=== PATIENT | male | born 1975 | race Two or more races ===

== ENCOUNTER 2017-06-05 13:12 | Inpatient (IN) | payer BC, OTHER ==
[~2017-06-05] VITALS: Ht 175.3 cm; Wt 95.5 kg
[~2017-06-05 13:12] MED LIST: INSU100V9 SQ; MAGCITRATE PO; NO HOME MEDS
[2017-06-05] MEDS ORDERED: normal saline 1000ML IV soln IV ONE (14:05)
[2017-06-05 14:27] LABS: BASOPHILS % (AUTO) 0.1 % (0-1); EOSINOPHILS # (AUTO) 0.1 X10'3 (0-0.9); EOSINOPHILS % (AUTO) 0.8 % (0-6); HEMATOCRIT 37.2 % (42.0-52.0); HEMOGLOBIN 12.9 g/dl (14.0-17.9); LYMPHOCYTES # (AUTO) 1.3 X10'3 (1.1-4.8); LYMPHOCYTES % (AUTO) 13.1 % (21-51); MEAN CORPUSCULAR HEMOGLOBIN 31.3 PG (27.0-31.0); MEAN CORPUSCULAR HGB CONC 34.6 % (33.0-36.5); MEAN CORPUSCULAR VOLUME 90.3 FL (78-98); MEAN PLATELET VOLUME 7.1 FL (7.4-10.4); MONOCYTES # (AUTO) 0.7 X10'3 (0-0.9); MONOCYTES % (AUTO) 7.1 % (2-12); NEUTROPHILS # (AUTO) 7.6 X10'3 (1.8-7.7); NEUTROPHILS % (AUTO) 78.9 % (42-75); PLATELET COUNT 330 X10'3 (140-440); RED BLOOD COUNT 4.12 X10'6 (4.70-6.10); RED CELL DISTRIBUTION WIDTH 12.3 % (11.5-14.5); WHITE BLOOD COUNT 9.7 X10'3 (4.5-11.0)
[2017-06-05 14:41] LABS: ALANINE AMINOTRANSFERASE 41 U/L (12-78); ALBUMIN 2.8 G/DL (3.4-5.0); ALBUMIN/GLOBULIN RATIO 0.6 (1.1-1.5); ALKALINE PHOSPHATASE 152 IU/L (46-116); ANION GAP 11 (8-16); ASPARTATE AMINO TRANSFERASE 14 U/L (10-37); BILIRUBIN,TOTAL 0.6 MG/DL (0.1-1.0); BLOOD UREA NITROGEN 15 MG/DL (7-18); BUN/CREATININE RATIO 14.2 (5.4-32.0); CALCIUM 9.3 MG/DL (8.5-10.1); CHLORIDE 96 MMOL/L (99-107); CREATININE 1.06 MG/DL (0.60-1.10); GLUCOSE 298 MG/DL (70-104); POTASSIUM 4.6 MMOL/L (3.5-5.1); SODIUM 134 MMOL/L (135-145); TOTAL PROTEIN 7.7 G/DL (6.4-8.2); eGFR 76 ML/MIN
[2017-06-05] MEDS ORDERED: iohexol 300mg/ml 100ml inj. ONE (15:00)
[2017-06-05] MEDS ORDERED: albuterol 2.5 MG/3 ML nebule NEB ONE (15:35)
[2017-06-05] MEDS ORDERED: LORazepam 2 mg/ml vial IV ONE (15:35)
[2017-06-05] MEDS ORDERED: methylPREDNISolone sod succ 125mg/2ml vial IV ONE (15:35)
[2017-06-05] MEDS ORDERED: oseltamivir phos 75mg capsule PO ONE (16:05)
[2017-06-05] MEDS: MESSAGE TO NURSING PO NR (16:12)
[2017-06-05] MEDS ORDERED: normal saline 1000ML IV soln IVB ONE (16:45)
[2017-06-05] MEDS ORDERED: CefTRIAXone 2gm/NS 100ml IVPB 100 ML IV ONE ×2 (16:45→18:05)
[2017-06-05] MEDS ORDERED: CefTRIAXone/dextrose 2GM bag 50 ML IV ONE ×2 (16:46→18:18)
[2017-06-05] MEDS ORDERED: azithromycin/NS 500mg/250ml 250 ML IV ONE (16:50)
[2017-06-05] MEDS ORDERED: ATOR10TA87 PO (17:36)
[2017-06-05] MEDS ORDERED: GABA-532 PO (17:36)
[2017-06-05] MEDS ORDERED: METF500T PO (17:37)
[2017-06-05] MEDS ORDERED: NOVRI SQ (17:38)
[2017-06-05] MEDS ORDERED: INSU100V9 SQ ×2 (17:39)
[2017-06-05] MEDS ORDERED: mag hydrox/Alum hydrox/simeth 30ml oral suspension PO PRN (18:05)
[2017-06-05] MEDS ORDERED: MESSAGE TO PHARMACY PO ONE (18:05)
[2017-06-05] MEDS ORDERED: acetaminophen 325mg tablet PO PRN ×2 (18:05)
[2017-06-05] MEDS ORDERED: glucagon, human recombinant 1mg kit SUBCUT PRN (18:05)
[2017-06-05] MEDS ORDERED: dextrose 50%-water 50ml dispensing syringe IV PRN ×2 (18:05)
[2017-06-05] MEDS ORDERED: magnesium hydroxide 30ml (MOM) UD suspension PO PRN (18:05)
[2017-06-05] MEDS ORDERED: dextrose ORAL solution 15 GM/59 ML bottle PO PRN ×2 (18:05)
[2017-06-05 19:02] LABS: HEMOGLOBIN A1C 11.8 % (4.5-6.2)
[2017-06-05] MEDS: ipratropium/albuterol 3ml nebule NEB PRN (19:27)
[2017-06-05] MEDS: ondansetron/PF 4mg/2ml inj IV PRN (19:29)
[2017-06-05] MEDS: gabapentin 100mg capsule PO SCH (19:29)
[2017-06-05] MEDS: normal saline 1000ml 1,000 ML IV SCH (19:30)
[2017-06-05] MEDS: Insulin Detemir pen SQ SCH (21:59)
[2017-06-05] MEDS: insulin Lispro (HumaLOG) vial - multi-dose SQ SCH (22:09)
[2017-06-06] VITALS: BP 143/77
[2017-06-06] MEDS: ipratropium/albuterol 3ml nebule NEB PRN ×3 (00:20→19:47)
[2017-06-06 00:50] VITALS: BP 127/64
[2017-06-06 03:47] LABS: BASOPHILS % (AUTO) 0 % (0-1); EOSINOPHILS % (AUTO) 0 % (0-6); HEMOGLOBIN 11.8 g/dl (14.0-17.9); LYMPHOCYTES # (AUTO) 0.5 X10'3 (1.1-4.8); MEAN CORPUSCULAR HEMOGLOBIN 31.6 PG (27.0-31.0); MEAN CORPUSCULAR HGB CONC 34.8 % (33.0-36.5); MEAN CORPUSCULAR VOLUME 90.7 FL (78-98); MEAN PLATELET VOLUME 7.3 FL (7.4-10.4); MONOCYTES # (AUTO) 0.3 X10'3 (0-0.9); MONOCYTES % (AUTO) 2.6 % (2-12); NEUTROPHILS # (AUTO) 10.6 X10'3 (1.8-7.7); NEUTROPHILS % (AUTO) 93.4 % (42-75); PLATELET COUNT 288 X10'3 (140-440); RED BLOOD COUNT 3.74 X10'6 (4.70-6.10); RED CELL DISTRIBUTION WIDTH 12.3 % (11.5-14.5); WHITE BLOOD COUNT 11.3 X10'3 (4.5-11.0)
[2017-06-06 04:00] LABS: ALANINE AMINOTRANSFERASE 23 U/L (12-78); ALBUMIN 2.5 G/DL (3.4-5.0); ALBUMIN/GLOBULIN RATIO 0.6 (1.1-1.5); ALKALINE PHOSPHATASE 145 IU/L (46-116); ANION GAP 19 (8-16); ASPARTATE AMINO TRANSFERASE 6 U/L (10-37); BILIRUBIN,TOTAL 0.4 MG/DL (0.1-1.0); BLOOD UREA NITROGEN 17 MG/DL (7-18); BUN/CREATININE RATIO 17.2 (5.4-32.0); CHLORIDE 100 MMOL/L (99-107); CREATININE 0.99 MG/DL (0.60-1.10); GLUCOSE 439 MG/DL (70-104); POTASSIUM 4.7 MMOL/L (3.5-5.1); SODIUM 136 MMOL/L (135-145); TOTAL CARBON DIOXIDE 16.9 MMOL/L (24-32); eGFR 83 ML/MIN
[2017-06-06] MEDS: normal saline 1000ml 1,000 ML IV SCH ×3 (05:11→19:27)
[2017-06-06 08:00] VITALS: BP 151/90
[2017-06-06] MEDS ORDERED: enoxaparin 40mg/0.4ml syringe SUBCUT SCH (08:00)
[2017-06-06] MEDS ORDERED: CefTRIAXone 2gm/NS 100ml IVPB 100 ML IV SCH (08:00)
[2017-06-06] MEDS: Insulin Detemir pen SQ SCH ×2 (08:07→21:46)
[2017-06-06] MEDS: insulin Lispro (HumaLOG) vial - multi-dose SQ SCH ×2 (08:12→19:31)
[2017-06-06] MEDS: gabapentin 100mg capsule PO SCH ×2 (08:15→19:23)
[2017-06-06] MEDS: MESSAGE TO NURSING PO NR (10:00)
[2017-06-06 11:00] VITALS: BP 141/80
[2017-06-06] MEDS: azithromycin/NS 500mg/250ml 250 ML IV SCH (11:36)
[2017-06-06] MEDS: guaiFENesin/DM oral syrup 5 ML CUP PO PRN (19:23)
[2017-06-06 20:00] VITALS: BP 141/80
[2017-06-06] MEDS ORDERED: gabapentin 300mg capsule PO SCH (20:00)
[2017-06-06] MEDS: atorvastatin 10mg tablet PO SCH (21:39)
[2017-06-07] VITALS: BP 127/70
[2017-06-07] MEDS: guaiFENesin/DM oral syrup 5 ML CUP PO PRN ×3 (01:36→20:04)
[2017-06-07 02:43] VITALS: BP 112/68
[2017-06-07] MEDS: normal saline 1000ml 1,000 ML IV SCH ×2 (05:33→20:04)
[2017-06-07 06:04] LABS: BASOPHILS % (AUTO) 0.2 % (0-1); EOSINOPHILS % (AUTO) 0.3 % (0-6); HEMATOCRIT 31.8 % (42.0-52.0); HEMOGLOBIN 10.9 g/dl (14.0-17.9); LYMPHOCYTES # (AUTO) 1.4 X10'3 (1.1-4.8); LYMPHOCYTES % (AUTO) 13.2 % (21-51); MEAN CORPUSCULAR HEMOGLOBIN 31.2 PG (27.0-31.0); MEAN CORPUSCULAR HGB CONC 34.2 % (33.0-36.5); MEAN CORPUSCULAR VOLUME 91.2 FL (78-98); MEAN PLATELET VOLUME 7.2 FL (7.4-10.4); MONOCYTES # (AUTO) 0.8 X10'3 (0-0.9); MONOCYTES % (AUTO) 7.6 % (2-12); NEUTROPHILS # (AUTO) 8.6 X10'3 (1.8-7.7); NEUTROPHILS % (AUTO) 78.7 % (42-75); PLATELET COUNT 276 X10'3 (140-440); RED BLOOD COUNT 3.49 X10'6 (4.70-6.10); RED CELL DISTRIBUTION WIDTH 12.5 % (11.5-14.5); WHITE BLOOD COUNT 10.9 X10'3 (4.5-11.0)
[2017-06-07 06:17] LABS: ALBUMIN 2.3 G/DL (3.4-5.0); ANION GAP 8 (8-16); BLOOD UREA NITROGEN 11 MG/DL (7-18); BUN/CREATININE RATIO 14.9 (5.4-32.0); CALCIUM 8.4 MG/DL (8.5-10.1); CHLORIDE 105 MMOL/L (99-107); CREATININE 0.74 MG/DL (0.60-1.10); GLUCOSE 80 MG/DL (70-104); POTASSIUM 3.3 MMOL/L (3.5-5.1); SODIUM 140 MMOL/L (135-145); TOTAL CARBON DIOXIDE 26.8 MMOL/L (24-32); eGFR > 90 ML/MIN
[2017-06-07] MEDS ORDERED: potassium Cl 40MEQ/NS 500ml 500 ML IV PRN ×2 (06:50)
[2017-06-07] MEDS ORDERED: potassium Cl 20 mEq SR tablet PO PRN (06:50)
[2017-06-07 07:00] VITALS: BP 150/81
[2017-06-07] MEDS: CefTRIAXone 2gm/D5W 50ml ADVTG 50 ML IV SCH (07:25)
[2017-06-07] MEDS: azithromycin/NS 500mg/250ml 250 ML IV SCH (08:51)
[2017-06-07] MEDS: LACTOBACILLUS RHAMNOSUS GG 15 billion unit sprinkle caps PO SCH (08:51)
[2017-06-07] MEDS: gabapentin 100mg capsule PO SCH ×2 (08:51→20:04)
[2017-06-07] MEDS: Insulin Detemir pen SQ SCH ×2 (08:54→21:07)
[2017-06-07] MEDS: insulin Lispro (HumaLOG) vial - multi-dose SQ SCH ×2 (09:29→13:20)
[2017-06-07] MEDS: MESSAGE TO NURSING PO NR (10:00)
[2017-06-07 11:00] VITALS: BP 130/80
[2017-06-07] MEDS: ondansetron/PF 4mg/2ml inj IV PRN (12:06)
[2017-06-07 18:00] VITALS: BP 132/75
[2017-06-07] MEDS: atorvastatin 10mg tablet PO SCH (21:02)
[2017-06-07] MEDS: potassium Cl 20 mEq SR tablet PO PRN (21:03)
[2017-06-07 23:56] VITALS: BP 122/76
[2017-06-08] MEDS: normal saline 1000ml 1,000 ML IV SCH (03:37)
[2017-06-08] MEDS: potassium Cl 20 mEq SR tablet PO PRN (03:37)
[2017-06-08] MEDS: guaiFENesin/DM oral syrup 5 ML CUP PO PRN (03:37)
[2017-06-08 05:14] LABS: BASOPHILS % (AUTO) 0.1 % (0-1); EOSINOPHILS # (AUTO) 0.2 X10'3 (0-0.9); EOSINOPHILS % (AUTO) 2.2 % (0-6); HEMATOCRIT 33.2 % (42.0-52.0); HEMOGLOBIN 11.7 g/dl (14.0-17.9); LYMPHOCYTES # (AUTO) 1.3 X10'3 (1.1-4.8); LYMPHOCYTES % (AUTO) 16.6 % (21-51); MEAN CORPUSCULAR HGB CONC 35.2 % (33.0-36.5); MEAN PLATELET VOLUME 6.8 FL (7.4-10.4); MONOCYTES # (AUTO) 0.8 X10'3 (0-0.9); NEUTROPHILS # (AUTO) 5.5 X10'3 (1.8-7.7); NEUTROPHILS % (AUTO) 71.1 % (42-75); PLATELET COUNT 296 X10'3 (140-440); RED BLOOD COUNT 3.65 X10'6 (4.70-6.10); RED CELL DISTRIBUTION WIDTH 12.4 % (11.5-14.5); WHITE BLOOD COUNT 7.8 X10'3 (4.5-11.0)
[2017-06-08 06:02] LABS: ALBUMIN 2.2 G/DL (3.4-5.0); ANION GAP 9 (8-16); BLOOD UREA NITROGEN 8 MG/DL (7-18); BUN/CREATININE RATIO 11.4 (5.4-32.0); CALCIUM 8.3 MG/DL (8.5-10.1); CHLORIDE 103 MMOL/L (99-107); GLUCOSE 147 MG/DL (70-104); MAGNESIUM 1.6 MG/DL (1.5-2.4); POTASSIUM 3.7 MMOL/L (3.5-5.1); SODIUM 138 MMOL/L (135-145); TOTAL CARBON DIOXIDE 26.4 MMOL/L (24-32); eGFR > 90 ML/MIN
[2017-06-08 06:30] VITALS: BP 116/71
[2017-06-08] MEDS: CefTRIAXone 2gm/D5W 50ml ADVTG 50 ML IV SCH (07:58)
[2017-06-08] MEDS: LACTOBACILLUS RHAMNOSUS GG 15 billion unit sprinkle caps PO SCH (07:58)
[2017-06-08] MEDS: gabapentin 100mg capsule PO SCH (07:59)
[2017-06-08] MEDS ORDERED: azithromycin 250mg tablet PO SCH (08:00)
[2017-06-08] MEDS: Insulin Detemir pen SQ SCH (08:01)
[2017-06-08] MEDS ORDERED: LEVO500T2 PO (11:10)
== END 2017-06-08 11:55 | disposition home or self-care (01) | DRG 193 ==
LOC: ER 13:15 → ED HOLD 18:02 → EDBEDREQ 19:45 → SUR 3N 20:45
PROVIDERS: ADMIT Internal Medicine; ATTEND Family Medicine
PROC: BW241ZZ Computerized Tomography (CT Scan) of Chest and Abdomen using Low Osmolar Contrast (ICD-10-PCS; principal; 2017-06-05)
DX: J18.9 Pneumonia, unspecified organism (principal); I26.99 Other pulmonary embolism without acute cor pulmonale; D64.9 Anemia, unspecified; E10.65 Type 1 diabetes mellitus with hyperglycemia; E86.0 Dehydration; F41.9 Anxiety disorder, unspecified; R04.0 Epistaxis; I45.10 Unspecified right bundle-branch block; E87.6 Hypokalemia; R91.1 Solitary pulmonary nodule; Z79.4 Long term (current) use of insulin; Z79.899 Other long term (current) drug therapy; Z90.49 Acquired absence of other specified parts of digestive tract
CPT/HCPCS: 36415; 71046; 71260; 80048; 80053; 82948; 83036; 83605; 83735; 84145; 84484; 85025; 87040; 87070; 87502; 87503; 93005; 94640; 94760; 96361; 96365; 96375; 99285; J0456; J0696; J1815; J2060; J2270; J2405; J2930; J7030; Q9967

== ENCOUNTER 2020-11-22 18:10 | Emergency (ER) | payer BC ==
[~2020-11-22] VITALS: Ht 170.2 cm; Wt 90.9 kg
[~2020-11-22 18:10] MED LIST changes: +ATOR10TA87 PO; +GABA-532 PO; -MAGCITRATE PO; +METF500T PO; -NO HOME MEDS
[2020-11-22 19:04] LABS: BASOPHILS % (AUTO) 0.5 % (0-1); EOSINOPHILS # (AUTO) 0.1 X10'3 (0-0.9); EOSINOPHILS % (AUTO) 1.2 % (0-6); HEMATOCRIT 31.4 % (42.0-52.0); HEMOGLOBIN 11.1 g/dl (14.0-17.9); LYMPHOCYTES # (AUTO) 0.9 X10'3 (1.1-4.8); LYMPHOCYTES % (AUTO) 10.2 % (21-51); MEAN CORPUSCULAR HEMOGLOBIN 33.4 PG (27.0-31.0); MEAN CORPUSCULAR HGB CONC 35.4 g/dL (33.0-36.5); MEAN CORPUSCULAR VOLUME 94.1 FL (78-98); MEAN PLATELET VOLUME 6.6 FL (7.4-10.4); MONOCYTES # (AUTO) 0.6 X10'3 (0-0.9); MONOCYTES % (AUTO) 6.6 % (2-12); NEUTROPHILS # (AUTO) 7.5 X10'3 (1.8-7.7); NEUTROPHILS % (AUTO) 81.5 % (42-75); PLATELET COUNT 440 X10'3 (140-440); RED BLOOD COUNT 3.33 X10'6 (4.70-6.10); RED CELL DISTRIBUTION WIDTH 13.8 % (11.5-14.5); WHITE BLOOD COUNT 9.2 X10'3 (4.5-11.0)
[2020-11-22 19:17] LABS: ALANINE AMINOTRANSFERASE 33 U/L (12-78); ALBUMIN 3.1 G/DL (3.4-5.0); ALBUMIN/GLOBULIN RATIO 0.6 (1.1-1.5); ALKALINE PHOSPHATASE 297 IU/L (46-116); ANION GAP 12 (8-16); ASPARTATE AMINO TRANSFERASE 17 U/L (10-37); BILIRUBIN,TOTAL 0.3 MG/DL (0.1-1.0); BLOOD UREA NITROGEN 34 MG/DL (7-18); BUN/CREATININE RATIO 18.3 (5.4-32.0); CALCIUM 9.4 MG/DL (8.5-10.1); CHLORIDE 97 MMOL/L (99-107); CREATININE 1.86 MG/DL (0.60-1.10); GLUCOSE 339 MG/DL (70-104); POTASSIUM 4.7 MMOL/L (3.5-5.1); SODIUM 134 MMOL/L (135-145); TOTAL CARBON DIOXIDE 25.2 MMOL/L (24-32); TOTAL PROTEIN 8.2 G/DL (6.4-8.2); eGFR 39 ML/MIN
[2020-11-22] MEDS ORDERED: normal saline 1000ml 1,000 ML IV ONE (20:35)
[2020-11-22] MEDS ORDERED: normal saline 1000ML IV soln IVB ONE (21:40)
[2020-11-22] MEDS ORDERED: acetaminophen 325mg tablet PO ONE (21:55)
[2020-11-22] MEDS ORDERED: ondansetron/PF 4mg/2ml inj IV ONE (22:05)
[2020-11-22] MEDS ORDERED: morphine 4 MG/ML inj SYRINge IV PRN (22:05)
[2020-11-22] MEDS ORDERED: ONDA4TAB6 PO (22:33)
[2020-11-22 23:43] VITALS: BP 134/76
== END 2020-11-22 23:45 | disposition home or self-care (01) ==
LOC: ER 18:10
DX: E11.65 Type 2 diabetes mellitus with hyperglycemia (principal); R11.2 Nausea with vomiting, unspecified; R19.7 Diarrhea, unspecified; E86.0 Dehydration; R05 Cough; Z87.01 Personal history of pneumonia (recurrent); Z88.8 Allergy status to other drugs, medicaments and biological substances; Z79.4 Long term (current) use of insulin; Z79.899 Other long term (current) drug therapy
CPT/HCPCS: 36415; 71045; 80053; 82948; 83605; 85025; 93005; 96361; 96374; 99285; J2405; J7030